=== PATIENT | female | born 1995 | race African-American/Black ===

== ENCOUNTER 2023-01-18 11:47 | Day surgery (SDC) | payer BC ==
[2023-01-16 10:48] VITALS: BMI 33.3
[2023-01-18 13:26] VITALS: TEMP 97.4
[2023-01-18 13:41] VITALS: BP 123/83; PULSE 85; RESP 16
== END 2023-01-18 13:43 | disposition home or self-care (01) ==
LOC: JASU-ENDO 11:47
PROVIDERS: ATTEND Internal Medicine Gastroenterology
PROC: 0DB68ZX Excision of Stomach, Via Natural or Artificial Opening Endoscopic, Diagnostic (ICD-10-PCS; 2023-01-18)
PROC: 0DB48ZX Excision of Esophagogastric Junction, Via Natural or Artificial Opening Endoscopic, Diagnostic (ICD-10-PCS; 2023-01-18)
PROC: 0DB98ZX Excision of Duodenum, Via Natural or Artificial Opening Endoscopic, Diagnostic (ICD-10-PCS; principal; 2023-01-18 13:03)
DX: K29.50 Unspecified chronic gastritis without bleeding (principal); K20.90 Esophagitis, unspecified without bleeding
CPT/HCPCS: 81025; 88305-TC; 88342-TC

== ENCOUNTER 2023-07-19 12:39 | Day surgery (SDC) | payer BC ==
[2023-07-11 15:41] VITALS: BMI 35.7
[2023-07-19] MEDS ORDERED: LIDOCAINE HCL/PF 2% SDV 5ML VIAL ONE (12:48)
[2023-07-19 14:58] VITALS: PULSE 89; TEMP 97.5
[2023-07-19 15:00] VITALS: RESP 17
[2023-07-19 15:10] VITALS: BP 102/64
== END 2023-07-19 15:00 | disposition home or self-care (01) ==
LOC: FASU-ENDO 12:39
PROVIDERS: ATTEND Internal Medicine Gastroenterology
PROC: 0DJD8ZZ Inspection of Lower Intestinal Tract, Via Natural or Artificial Opening Endoscopic (ICD-10-PCS; principal; 2023-07-19 13:29)
DX: K92.1 Melena (principal); K64.0 First degree hemorrhoids
CPT/HCPCS: 81025